=== PATIENT | female | born 1965 | race Caucasian/White ===

== ENCOUNTER 2017-07-19 18:53 | Emergency (ER) | payer OTHER ==
[~2017-07-19] VITALS: Ht 162.6 cm; Wt 80.0 kg
[2017-07-19 18:56] VITALS: BP 131/76; PULSE 73; RESP 16; TEMP 97.4; O2SAT 95
[2017-07-19] MEDS ORDERED: SERT-132 PO (19:09)
[2017-07-19] MEDS ORDERED: VITA2000 PO (19:09)
[2017-07-19] MEDS ORDERED: CLON0.5T PO (19:09)
[2017-07-19] MEDS ORDERED: MAGN400T2 PO (19:09)
--- NOTE | 2017-07-19 19:56 | PD ---
HPI Chief Complaint: Injury Time Seen by Provider: 19:02 Travel History International Travel<30 days: No Contact w/Intl Traveler<30days: No Traveled to known affect area: No History of Present Illness HPI 51-year-old female presents to the emergency department with complaint of left fourth finger pain, bruising, swelling, injury that occurred yesterday. She said she slipped on an envelope on the floor and hit her finger up against the wall while she was trying to catch herself from falling. Denies paresthesias, loss of sensation to the affected finger. Reports decreased range of motion at the DIP joint. Has been icing it and took some ibuprofen yesterday for pain. Rates pain 8/10. Worse with movement. Better at rest. Describes as throbbing. Primary care provider is Dr. Rivera in [place]. Allergies to codeine and IV dye. History of breast cancer. Has no other medical complaints. No other modifying factors or associated signs and symptoms. PFSH Past Medical History ?: Not Social History Tobacco Use: No Allergies-Medications (Allergen,Severity, Reaction): Coded Allergies: Iodinated Contrast- Oral and IV Dye (Verified Allergy, Severe, Swelling, ) codeine (Verified Allergy, Severe, Anaphylaxis, 07/19/17) Reported Meds & Prescriptions Reported Meds & Active Scripts Active Reported Magnesium Oxide 400 Mg Tab 400 Mg PO DAILY Vitamin D3 (Cholecalciferol) 2,000 Unit Cap 2,000 Units PO DAILY Sertraline (Sertraline HCl) 50 Mg Tab 50 Mg PO HS Clonazepam 0.5 Mg Tab 0.5 Mg PO HS Review of Systems Except as stated in HPI: all other systems reviewed are Neg Physical Exam Narrative GENERAL: Well-nourished, well-developed female patient, in no acute distress SKIN: Warm and dry. HEAD: Atraumatic. Normocephalic. EYES: Pupils equal and round. No scleral icterus. No injection or drainage. ENT: Mucosa pink and moist. Airway patent. NECK: Trachea midline. CARDIOVASCULAR: Regular rate. RESPIRATORY: No accessory muscle use. GASTROINTESTINAL: Rounded. MUSCULOSKELETAL: Left fourth finger with bruising and minimal swelling; unable to flex at the DIP joint; tenderness on palpation of the proximal and middle phalanx; no obvious deformity; fingers pink and warm and with sensory intact. There is minimal bruising noted to the MCP joint area but there is no tenderness on palpation to that area; patient is able to flex and extend the finger at the MCP joint. no obvious deformities. No clubbing. No cyanosis. No edema. NEUROLOGICAL: Awake and alert. Oriented 3. No obvious cranial nerve deficits. Motor grossly within normal limits. Normal speech. PSYCHIATRIC: Appropriate mood and affect; insight and judgment normal. Data Data Last Documented VS Vital Signs Date Time Temp Pulse Resp B/P (MAP) Pulse Ox O2 Delivery O2 Flow Rate FiO2 07/19/17 18:56 97.4 73 16 131/76 (94) 95 Orders Orders Finger ([id number]) (07/19/17 ) MDM Medical Decision Making Medical Screen Exam Complete: Yes Emergency Medical Condition: Yes Medical Record Reviewed: Yes Differential Diagnosis Sprain, fracture, dislocation Narrative Course 51-year-old female with left hand fourth finger injury. I offered the patient pain medication and she declined. She has an ice pack from home. Left fourth finger x-ray ordered. 0825: Left fourth finger x-ray concluded: Finger X-Ray 07/19/17 0000 Signed Impressions: CONCLUSION: Acute avulsion fracture involving the volar aspect of the proximal portion of t he left fourth middle phalanx with involvement of the articular surface. Discussed x-ray findings with the patient. Call placed to Dr. Canela, hand surgeon. 2045: I spoke with Dr. Canela and she recommended to splint the finger and have the patient follow-up in the office. Finger splint ordered and applied. Ibuprofen prescribed for home. Instructed patient to follow-up with hand surgeon and to call and make an appointment on Friday. Patient provided with Dr. Camille Canela's contact information for follow-up. Instructed patient to follow up with primary care provider. Patient verbalizes understanding and agreement with treatment plan. Patient is medically cleared and stable for discharge. Discussed reasons to return to the emergency department. Patient agrees with treatment plan. The patients vital signs are stable and the patient is stable for outpatient follow-up and treatment. Patient discharged home, stable and in no acute distress. Diagnosis Primary Impression: Finger fracture, left Qualified Codes: S62.655A - Nondisplaced fracture of medial phalanx of left ring finger, initial encounter for closed fracture Referrals: Camille Canela MD Hand Surgeon Primary Care Physician Patient Instructions: Finger Fracture (ED), General Instructions Additional Instructions: Tylenol or ibuprofen as directed and as needed to reduce pain Rest, ice, compress, and elevate extremity to decrease pain and inflammation Finger splint for support Avoid aggravating activity; increase activity as tolerated Follow-up with primary care provider Follow-up with hand surgeon on Friday; call and make an appointment; Dr. Camille Canela's contact information has been provided in your discharge instructions for follow-up Return to the emergency department immediately with worsening symptoms Med/Other Pt SpecificInfo: Prescription(s) given Scripts Ibuprofen (Ibuprofen) 800 Mg Tab 800 MG PO Q6HR Y for PAIN, #20 TAB 0 Refills Prov: Kelly English 07/19/17 Disposition: 01 DISCHARGE HOME Condition: Stable Kelly English Jul 19, 2017 19:56
--- NOTE | 2017-07-19 20:15 | RADRPT ---
EXAM DATE: 07/19/2017 8:10 PM EDT AGE/SEX: 51 years / Female INDICATIONS: Pain in left hand, fourth digit, proximal interphalangeal joints. Patient states she fe ll yesterday. CLINICAL DATA: This is the patient's initial encounter. Patient reports that signs and symptoms have been present for 1 day and indicates a pain score of 6/10. MEDICAL/SURGICAL HISTORY: None. . Reconstruction on digits 2, 3, and 4, left hand. COMPARISON: No prior [facility] exams available for comparison. FINDINGS: There is an acute avulsion fracture involving the volar aspect of the proximal portion of the left fo urth middle phalanx with involvement of the articular surface. CONCLUSION: Acute avulsion fracture involving the volar aspect of the proximal portion of the left fourth middle phalanx with involvement of the articular surface. Electronically signed by: Devon Lynch MD 07/19/2017 8:13 PM EDT
[2017-07-19] MEDS ORDERED: IBUP1TAB7 PO (20:47)
--- NOTE | 2017-07-19 20:53 | PD ---
Physical Exam Date Seen by Provider: Jul 19, 2017 Time Seen by Provider: 20:50 Narrative 51-year-old female came to the emergency room with history of left fourth finger injury yesterday. Today her PIP joint was swollen and she was having trouble bending it because of the pain. She was seen by my nurse practitioner and I am supervising her. The x-ray showed an avulsion fracture off the middle phalanx going down into the joint. The case was discussed with Dr. Canela over the phone. As per her patient could be discharged home with a finger splint and nickie tape and she will see her in her office. Patient has been difficult with my nurse practitioner as well as the nurse so I went into explained this to the patient. She was adamant that the hand surgeon should come to see her in the emergency room. I tried to explain to her that this was not an emergency and emergency surgery is not needed. Once the hand surgeon sees her in her office it would be determined what needs to be done by the hand surgeon. She was concerned that she has a straight Medicaid and if she would be accepted at the hand surgeon's office. I have informed her that a mandatory referral would be put in. Patient would be discharged. I tried to answer all her questions to the best of my ability. Data Data Last Documented VS Vital Signs Date Time Temp Pulse Resp B/P (MAP) Pulse Ox O2 Delivery O2 Flow Rate FiO2 07/19/17 18:56 97.4 73 16 131/76 (94) 95 Orders Orders Finger ([id number]) (07/19/17 ) Ed Discharge Order (07/19/17 20:48) Splint Or Brace Apply/Monitor (07/19/17 20:48) Mandatory Outpatient Referral (07/19/17 20:48) Finger Splint (07/19/17 ) [facility] Supervised Visit with [facility]: Yes Diagnosis Primary Impression: Finger fracture, left Qualified Codes: S62.655A - Nondisplaced fracture of medial phalanx of left ring finger, initial encounter for closed fracture Referrals: Camille Canela MD Primary Care Physician Hand Surgeon Patient Instructions: General Instructions, Finger Fracture (ED) Additional Instruction: Tylenol or ibuprofen as directed and as needed to reduce pain Rest, ice, compress, and elevate extremity to decrease pain and inflammation Finger splint for support Avoid aggravating activity; increase activity as tolerated Follow-up with primary care provider Follow-up with hand surgeon on Friday; call and make an appointment; Dr. Camille Canela's contact information has been provided in your discharge instructions for follow-up Return to the emergency department immediately with worsening symptoms Scripts Ibuprofen (Ibuprofen) 800 Mg Tab 800 MG PO Q6HR Y for PAIN, #20 TAB 0 Refills Prov: Kelly English Alexi QUALITY ASSURANCE TECHNICIAN 07/19/17 Disposition: 01 DISCHARGE HOME Condition: Stable Ailin Iraheta MD Jul 19, 2017 20:53
== END 2017-07-19 21:27 | disposition home or self-care (01) ==
LOC: NEPD 18:53
DX: S62.655A Nondisplaced fracture of middle phalanx of left ring finger, initial encounter for closed fracture (principal); W18.41XA Slipping, tripping and stumbling without falling due to stepping on object, initial encounter; Z85.3 Personal history of malignant neoplasm of breast; Z88.5 Allergy status to narcotic agent; Z79.899 Other long term (current) drug therapy
CPT/HCPCS: 29130; 73140; 99283